=== PATIENT | female | born 1970 | race Caucasian/White ===

== ENCOUNTER 2021-04-02 15:53 | Emergency (ER) | payer OTHER, SELFPAY ==
[2021-04-02 15:54] VITALS: BP 117/73; PULSE 59; RESP 16; TEMP 36.3; O2SAT 100; BMI 23.0
[2021-04-02 16:28] VITALS: O2SAT 98
--- NOTE | 2021-04-02 16:28 | EKG12_ITS ---
Test Reason : CP Blood Pressure : / mmHG Vent. Rate : 053 BPM Atrial Rate : 053 BPM P-R Int : 150 ms QRS Dur : 086 ms QT Int : 436 ms P-R-T Axes : 079 072 053 degrees QTc Int : 409 ms Sinus bradycardia Otherwise normal ECG Confirmed by CARLI CARLSON, ROBERT ([id number]), book editor JAMAL SKY ([id number]) on 04/06/2021 8:36:14 AM Referred By: MOHAMUD Confirmed By:ROBERT BOYCE MD
--- NOTE | 2021-04-02 16:40 | EDS_ITS ---
HPI History of Present Illness Chief Complaint: Chest Pain Narrative Narrative: 50-year-old female presenting with chest pain which resolved. She stated last about 5 minutes. She felt it was like a squeezing in the center of her chest. She felt nauseous when this happened. She denies any cardiac history. She states the other medication take his Synthroid for hypothyroidism. She has no history of DVT/PE and no risk factors. She was previously on control a year ago. Patient states he is not in any pain currently. She states she had an episode which was milder last week. She is felt fine in the interim. [facility] Medical History Hypothyroid Home Medications levothyroxine [Synthroid] 88 mcg PO DAILY 04/02/21 [History Last Taken Unknown] Allergy/AdvReac Type Severity Reaction Status Date / Time No Known Allergies Allergy Verified 04/02/21 15:56 Social History Smoking Status: Never smoker ROS ROS ED Constitutional Constitutional ED: Denies chills, fever(s) or subjective Eyes Eyes: Denies none, blurry vision or change in vision ENT ENT ED: Denies ear pain or rhinorrhea Cardiovascular Cardiovascular: Reports chest pain; Denies palpitations or racing heartbeat Respiratory/Chest Respiratory/Chest: Denies cough or dyspnea Gastrointestinal Gastrointestinal: Reports nausea; Denies abdominal pain Genitourinary Genitourinary ED: Denies dysuria or hematuria Musculoskeletal Musculoskeletal: Denies arthralgias or myalgias Integumentary Denies abscess or rash Neurologic Neurologic: Denies headache(s), paresthesias or weakness Psychiatric Psychiatric: Denies anxiety or depression EXAM Physical Exam Const Vital Signs: 04/02/21 15:54 04/02/21 16:28 04/02/21 16:33 Temperature 97.4 F L Temperature Source Temporal Pulse Rate 59 L Respiratory Rate 16 Respiratory Effort Normal Non-Labored Blood Pressure 117/73 Blood Pressure Mean 87 Pulse Ox 100 98 Oxygen Delivery Method Room Air Room Air 04/02/21 17:06 04/02/21 18:00 04/02/21 19:49 Temperature Temperature Source Pulse Rate 59 L 56 L 61 Respiratory Rate 16 14 16 Respiratory Effort Blood Pressure 119/76 111/68 119/74 Blood Pressure Mean 90 82 Pulse Ox 100 100 98 Oxygen Delivery Method Room Air Room Air Positive well nourished and well developed General Appearance ED: well developed and NAD HEENT Reports moist mucous membranes normocephalic and atraumatic Eyes PERRL and EOMs intact bilaterally Chest Wall inspection of chest normal and palpation of chest normal Resp normal respiratory effort and clear to auscultation bilaterally Effort and Inspection: respiratory distress Cardio regular rate and regular rhythm Neuro oriented x3 Sensorium / Orientation: awake and alert Psych mental status grossly normal Skin no rashes or lesions noted and no wounds Heart Score History: Slightly/Non-Suspicious ECG: Normal Age: >45 - <65 years Risk Factors: No Risk Factors Score: 1 MDM MDM MDM Narrative Medical decision making narrative: 50-year-old female presenting with chest pain. She states she had an episode last week. Is currently resolved. She had EKG performed on arrival which is sinus rhythm at 52 bpm without signs of ST elevation or depression as interpreted by myself. Her vital signs are stable and she is afebrile. Currently her heart score is 1 for age. I cannot use the PERC rule due to age as well. Patient will have D-dimer and cardiac work-up. Patient's initial troponin is negative and so is her delta troponin. D-dimer is also negative. Lab work is otherwise unremarkable. Chest x-ray on my interpretation shows no acute cardiopulmonary process. The radiologist does agree. I believe patient safe to be discharged home at this time. She is given return precautions. Lab Data Labs: Laboratory Results - last 24 hr 04/02/21 04/02/21 04/02/21 16:32 16:32 18:21 WBC 5.8 RBC 4.23 Hgb 12.5 Hct 38.4 MCV 90.8 MCH 29.6 MCHC 32.6 RDW Std Deviation 42.5 RDW Coeff of Ruddy 12.9 Plt Count 178 MPV 12.1 H Immature Gran % (Auto) 0.200 Neut % (Auto) 55.5 Lymph % (Auto) 34.0 [place] % (Auto) 6.5 Eos % (Auto) 2.4 Baso % (Auto) 1.4 H Absolute Neuts (auto) 3.2 Absolute Lymphs (auto) 1.98 Nucleated RBC % 0 D-Dimer Quant (PE/DVT) Sodium 140 Potassium 3.8 Chloride 109 H Carbon Dioxide 25.0 Anion Gap 6 BUN 10 Creatinine 0.59 Estim Creat Clear Calc 97.41 Est GFR (MDRD) Af Amer 138 Est GFR (MDRD) Non-Af 114 BUN/Creatinine Ratio 16.9 Glucose 89 Calcium 9.0 Troponin I High Sens 3.9 4.9 04/02/21 18:21 WBC RBC Hgb Hct MCV MCH MCHC RDW Std Deviation RDW Coeff of Ruddy Plt Count MPV Immature Gran % (Auto) Neut % (Auto) Lymph % (Auto) [place] % (Auto) Eos % (Auto) Baso % (Auto) Absolute Neuts (auto) Absolute Lymphs (auto) Nucleated RBC % D-Dimer Quant (PE/DVT) 0.37 Sodium Potassium Chloride Carbon Dioxide Anion Gap BUN Creatinine Estim Creat Clear Calc Est GFR (MDRD) Af Amer Est GFR (MDRD) Non-Af BUN/Creatinine Ratio Glucose Calcium Troponin I High Sens Radiography Diagnostic Testing: Radiology Impression Chest X-Ray 04/02/21 16:50 IMPRESSION: Normal x-ray examination of the chest. Electronically Signed: Patrick Oscar DO at 17:01 EDT Tel [phone], Service support , Discharge Plan Triage Chief Complaint: Chest Pain ED Provider: Sung Do Dx/Rx/DC Orders Instructions: ED Chest Pain, Noncardiac Prescriptions: No Action levothyroxine [Synthroid] 88 mcg Tablet 88 mcg PO DAILY RF: 0 Primary Care Provider: Adore Dalton Referrals: Adore Dalton MD [Primary Care Provider] - Disposition Disposition: Home, Self Care Discharge Date/Time: 04/02/21 19:49
--- NOTE | 2021-04-02 16:50 | RAD_ITS ---
STUDY: X-RAY CHEST REASON FOR EXAM: Female, 50 years old. Chest pain TECHNIQUE: Frontal view COMPARISON: None. FINDINGS: The lungs are clear and expanded. There is no demonstrated pleural abnormality. Normal size heart. Normal mediastinum and georgi. Normal visualized pulmonary arteries. Normal visualized aortic arch and descending thoracic aorta. Normal visualized thoracic spine. Normal visualized ribs, clavicles, and shoulders. There is no demonstrated abnormality of the visualized soft tissue structures of the upper abdomen. RAD/Chest 1 View (Portable) IMPRESSION: Normal x-ray examination of the chest. Electronically Signed: Patrick Oscar DO at 17:01 EDT Tel [phone], Service support ,
[2021-04-02 16:59] LABS: Absolute Lymphocyte Count 1.98 X10^3/uL (0.83-4.51); Absolute Neutrophil Count 3.2 X10^3/uL (2.0-7.7); Basophil# 0.08 X10^3/uL; Basophil% 1.4 % (0-1); Eosinophil# 0.14 X10^3/uL; Eosinophils% 2.4 % (0-5); Hematocrit 38.4 % (37-47); Hemoglobin 12.5 g/dL (12.0-15.0); Lymphocyte # 1.98 X10^3/ul (0.83-4.51); Mean Corp Hgb Conc 32.6 g/dL (32-36); Mean Corpuscular Hgb 29.6 pg (27.0-32.0); Mean Corpuscular Volume 90.8 fL (81-99); Mean Platelet Vol. 12.1 fl (6.2-12.0); Monocyte# 0.38 X10^3/uL; Monocyte% 6.5 % (0-10); NRBC Flagged by Analyzer 0 % (0-5); Neutrophil # 3.24 X10^3/uL (2.7-7.7); Neutrophil % 55.5 % (47-70); Platelet Count 178 K/mm3 (150-450); RBC Distribution Width CV 12.9 % (11.6-14.6); RBC Distribution Width SD 42.5 fl (35.1-43.9); Red Blood Count 4.23 M/mm3 (4.2-5.4); White Blood Count 5.8 K/mm3 (4.4-11.0)
[2021-04-02 17:06] VITALS: BP 119/76; PULSE 59; RESP 16; O2SAT 100
[2021-04-02 17:13] LABS: Anion Gap 6 (5-15); BUN 10 mg/dL (7-18); BUN/Creat Ratio 16.9 RATIO (10-20); Chloride 109 mmol/L (98-107); Creatinine, Serum 0.59 mg/dL (0.55-1.02); EST Glomerular Filtration Rate 114 mL/min (>60); Est Glom Filt Rate - Afr Amer 138 mL/min (>60); Estimated Creatinine Clearance 97.41 ml/min; Glucose 89 mg/dL (74-106); Potassium 3.8 mmol/L (3.5-5.1); Sodium Level 140 mmol/L (136-145); Troponin-I HS 3.9 pg/mL (3.0-53.7)
[2021-04-02 18:00] VITALS: BP 111/68; PULSE 56; RESP 14; O2SAT 100
[2021-04-02 18:47] LABS: D-Dimer Quantitative (DVT/PE) 0.37 FEU/ug/m (0.27-0.49)
[2021-04-02 18:53] LABS: Troponin-I HS 4.9 pg/mL (3.0-53.7)
[2021-04-02 19:49] VITALS: BP 119/74; PULSE 61; RESP 16; O2SAT 98
== END 2021-04-02 19:49 | disposition home or self-care (01) ==
PROVIDERS: Emergency Provider Student in an Organized Health Care Education/Training Program; PCP Internal Medicine
DX: R07.89 Other chest pain (principal); R11.0 Nausea; E03.9 Hypothyroidism, unspecified; Z79.899 Other long term (current) drug therapy
CPT/HCPCS: 71045; 80048; 84484; 85025; 85379; 93005; 99283; A4216

== ENCOUNTER 2024-04-25 09:43 | Day surgery (SDC) | payer OTHER, SELFPAY ==
--- NOTE | 2024-04-16 13:15 | PCM.HP.BLA ---
History and Physical Date of Admission: 04/25/24 HPI: The patient is a 53 year old female presenting for pre-operative visit. She is scheduled for hysteroscopy with endomtrial ablation, for menorhagia on 04/25/24. Procedure discussed along with risks, benefits and complications. Other alternatives discussed for management. Consent form signed? Yes. PAST MEDICAL HISTORY PAST MEDICAL HISTORY Diagnosis Date ? 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 COLONOSCOPY SCREENING 08/18/2023 repeat 10 years ? PAST SURGICAL HISTORY OF 10/09/1996 left infra-axillary fibroma (skin), benign ? SKIN BIOPSY HX ? THYROIDECTOMY TOTAL/COMPLETE 05/09/1993 right lobe and isthmus CURRENT MEDICATIONS Current Outpatient Medications Medication Sig Dispense Refill ? Cromolyn Sodium (CROLOM) 4 % ophthalmic solution Use 1 Drop in both eyes four times daily. 10 mL 0 ? fluticasone (FLONASE) 50 mcg/actuation nasal spray Use 2 Sprays in each nostril once daily. Rinse mouth after use. 11.1 mL 0 ? levothyroxine (SYNTHROID) 88 mcg tablet Take 1 tablet by mouth once daily. Take on empty stomach. 90 tablet 3 No current facility-administered medications for this visit. ALLERGIES: Patient has no known allergies. PERSONAL HISTORY: SOCIAL HISTORY Social History Tobacco Use ? Smoking status: Never ? Smokeless tobacco: Never Vaping Use ? Vaping Use: Never used Substance Use Topics ? Alcohol use: Yes Comment: Occasionally ? Drug use: No FAMILY HISTORY: FAMILY HISTORY FAMILY HISTORY Problem Relation Age of Onset ? Blood Disease Mother blood clots x 2 (leg, neck) -- starting 2005 ? Colon Cancer Mother 79 ? Coronary Artery Disease Father no MD, no surgery, well controlled ? Asthma Sister ? other (Eczema) Sister ? Cancer Maternal Grandmother uterine ? Blood Disease Maternal Grandfather blood clots, unsure details ? Asthma Paternal Grandmother ? Asthma Son ? other (Eczema) Son ? Cancer Other Paternal cousin with Leukemia REVIEW OF SYMPTOMS: GENERAL: denies fevers or chills ENDOCRINOLOGY: has not been on steroids Cardiology : denies palpitations or chest pain Respiratory: denies SOB or cough Hematology: denies history of prolonged bleeding or easy bruising or VTE Allergy: Denies history of personal or family history of allergy to anesthesia PHYSICAL EXAMINATION: VITALS: Blood pressure 112/64, weight 59.9 kg (132 lb), last menstrual period 03/12/2024. GENERAL: The patient is well nourished, well hydrated in no acute distress. , The patient is oriented to time, place, and person. NECK: Supple. No lynphadenopathy, normal thyroid, no thyromegaly. LUNGS: Clear to auscultation bilaterally. no wheezes, rhonchi or rales HEART: Regular rate and rhythm, Normal heart sounds, and No murmurs or gallops IMPRESSION: menorrhagia PLAN: The risks/benefits/alternatives and personal involved for the planned hysteroscopy with endometrial ablation were reviewed with the patient. Her questions were answered to her satisfaction and she desires to proceed. Consent was signed. I reviewed with her postop instructions and expectations. I have reviewed and updated past medical and surgical history, medications and allergies Assessment & Plan Assessment/Plan (1) Menorrhagia:
[2024-04-25] VITALS (8 sets, daily range): BP systolic 99–119; BP diastolic 69–76; PULSE 52–66; RESP 16; TEMP 36.2–36.8; O2SAT 94–100; BMI 22.3
[2024-04-25 10:11] LABS: Internal QC Validated? YES +Cl - CLEAR BKGD; Pregnancy, Urine Negative Negative
[2024-04-25] MEDS: Acetaminophen 500 MG Tablet 1000 MG PO (10:15)
[2024-04-25] MEDS: Lactated Ringers 1,000 ML 15 ML IV (10:15)
[2024-04-25] MEDS: Ketorolac 30 MG/ML Syringe IV (10:15)
--- NOTE | 2024-04-25 10:16 | DCINST_ITS ---
Discharge Instructions Diet Discharge Diet: No restrictions Activity May resume sexual activity in: 1 week Dressing / Incision Call your doctor if you observe: Fever of 101 or Higher, Inability to urinate, Using more than 1 pad per hour and Uncontrolled pain Follow Up Care Please Follow Up With: Suze Rosas MD When: 1-2 weeks post OP if you need an appointment please call [phone] Test Results: Test results from this visit will be discussed in further detail at your follow- up appointment, if applicable. Discharge Plan Admission Attending Provider: Suze Rosas Primary Care Provider: Adore Dalton Instructions Print Language: Tanzanian Discharge Orders/Prescriptions Prescriptions: No Action levothyroxine [Synthroid] 88 mcg Tablet 88 mcg PO DAILY multivit with min-folic acid [Adult Multivitamin Gummies] 200 mcg tablet,chewable 1 tab PO DAILY [place]-3 350 mg-235 mg- 90 mg-597 mg capsule,delayed release(DR/EC) 1 cap PO DAILY Referrals / Follow Up: Adore Dalton MD [Primary Care Provider] - Disposition Disposition (needs filled in before D/C Order can be placed): Home, Self Care
--- NOTE | 2024-04-25 10:32 | PCM.PRE.AN2 ---
ASA Classification* ASA Classification ASA Classification: 2 Assessment & Plan Anesthesia* Anesthesia Assessment Anesthesia Assessment: Discussed sedation and/or anesthesia options, risks, benefits, and alternatives with patient/parents/legal guardian/POA. Questions invited. The patient/parents/legal guardian/POA seems to understand and agrees to proceed with anesthesia plan. Reviewed the physical assessment, medical history, allergy history and patient home medications list prior to surgery/procedure/anesthetic and documented any changes. Performed airway and anesthesia risk assessments. Anesthesia Type Anesthesia Type: MAC (see pre anesthesia written record for full assessment) Anesthesia Focused Assessment* Temperature: 98.1 F Pulse Rate: 58 Blood Pressure: 119/76 Respiratory Rate: 16 Pulse Ox: 100 Airway Assessment Mouth opens: >3 cm Mallampati Score: II Focused Labs Anesthesia Preop lab: CBC WBC 5.8 K/mm3 (4.4-11.0) 04/02/21 16:32 RBC 4.23 M/mm3 (4.2-5.4) 04/02/21 16:32 Hgb 12.5 g/dL (12.0-15.0) 04/02/21 16:32 Hct 38.4 % (37-47) 04/02/21 16:32 Plt Count 178 K/mm3 (150-450) 04/02/21 16:32 CHEMISTRY Potassium 3.8 mmol/L (3.5-5.1) 04/02/21 16:32 Sodium 140 mmol/L (136-145) 04/02/21 16:32 BUN 10 mg/dL (7-18) 04/02/21 16:32 Creatinine 0.59 mg/dL (0.55-1.02) 04/02/21 16:32 Glucose 89 mg/dL (74-106) 04/02/21 16:32 COAG Urine Test Negative Negative 04/25/24 10:05 Pre-Assessment Diagnosis/Proposed Procedure Planned Operative Procedure(s): HYSTEROSCOPY FRANK Anesthesia History Anesthesia History - vulcanizer operator: Anesthesia History - vulcanizer operator Hx Hospitalization No 04/18/24 14:20 Any Problems With Anesthesia No 04/18/24 14:20 Cholinesterase deficiency No 04/18/24 14:20 You/Your Family Experience No 04/18/24 14:20 fever (hyperthermia) with Relationship Recent Exposure to Contagious No 04/25/24 10:11 Disease Does patient have nerve No 04/18/24 14:20 stimulator Patient instructed to have device shut off --Does patient have Pacemaker No 04/25/24 10:11 or ICD? When Was Last Pacemaker Check QUESTION #4 FULL TEXT: You/Your Family Experience fever (hyperthermia) with Anesthesia Last Oral Intake Last Oral intake: Last Oral Intake NPO since 00:00 04/25/24 10:11 Meds taken in AM with sips of Yes 04/25/24 10:11 water? Meds patient instructed to take am of surgery PONV PONV - vulcanizer operator: PONV - vulcanizer operator Female Yes 04/18/24 14:20 HX of Motion Sickness Yes 04/18/24 14:20 HX of N/V After Surgery No 04/18/24 14:20 Non-Smoker Yes 04/18/24 14:20 Duration of Surgery greater No 04/18/24 14:20 than 60 minutes Number of Risk Factors 3 04/18/24 14:20 PONV Score Moderate Risk 04/18/24 14:20 Height & Weight Height & Weight: Anesthesia: Height & Weight Height 5 ft 5 in 04/25/24 10:11 Weight: 60.872 kg 04/25/24 10:11 Body Mass Index (BMI) 22.3 04/25/24 10:11 Respiratory Assessment Respiratory Assessment - vulcanizer operator: Respiratory Tract Infection Hx - vulcanizer operator Hx Respiratory Tract Infection No 04/18/24 14:20 STOP Sleep Apnea STOP Sleep Apnea - vulcanizer operator: STOP Sleep Apnea - vulcanizer operator Hx Hypertension No 04/18/24 14:20 Hx Sleep Apnea No 04/18/24 14:20 CPAP BIPAP Do you snore loudly (louder Yes 04/18/24 14:20 than talking or can be heard Do you often feel tired/ No 04/18/24 14:20 fatigued/ sleepy during daytime? Has anyone observed you stop No 04/18/24 14:20 breathing during sleep? STOP Results Negative 04/18/24 14:20 QUESTION #5 FULL TEXT : Do you snore loudly (louder than talking or can be heard through closed doors)? Tobacco Use History Tobacco Use History - vulcanizer operator: Tobacco Use History - vulcanizer operator Tobacco Use Smoking Status Never smoker 04/18/24 14:20 Hx Tobacco Use No 04/18/24 14:20 Years Smoking Packs Smoked per Day Smoking Cessation Date was within the last 15 years Hx Smoking Cessation Date Hx Smoking Cessation Counseling Hematologic Medial History Hematologic Hx - vulcanizer operator: Hematologic Medical Hx - flight dynamicist Hx of Blood Transfusion No 04/18/24 14:20 Hx of Transfusion in last 3 No 04/18/24 14:20 Months Date of Last Transfusion (if within last 3 months) Ever experience any problems No 04/18/24 14:20 with transfusion(s)? Specify any problems Hx of Preganancy in last 3 No 04/18/24 14:20 Months Nurse Filling Out Transfusion DSCHRIBER 04/18/24 14:20 & Questions: Date: 04/18/24 04/18/24 14:20 Time: 14:21 04/18/24 14:20 Patient unable to answer at this time (ie. confused, unrespo /Reproduction History /Reproductive History - vulcanizer operator: /Reproductive Hx- vulcanizer operator Hx Now No 04/18/24 14:20 Gestational Age (in weeks): EDC: Hx Hx Para Hx Section SAB No 04/18/24 14:20 Active Medications Active Medications: Current Medications Generic Name Dose Route Start Last Admin Trade Name Freq PRN Reason Stop Dose Admin Acetaminophen 1,000 mg 04/25/24 10:55 04/25/24 10:15 Acetaminophen 500 Mg Tablet PO 04/25/24 10:56 1,000 mg PREOP ONE Administration Lactated Ringer's 1,000 mls @ 15 mls/hr 04/25/24 10:00 04/25/24 10:15 IV 15 mls/hr .Q48H CESAR Administration Ketorolac Tromethamine 30 mg 04/25/24 10:55 04/25/24 10:15 Ketorolac 30 Mg/Ml Syringe IV 04/25/24 10:56 30 mg PREOP ONE Administration PFSH Medical History Wears glasses Cancer Alcohol use Non-smoker Hypothyroid Home Medications ?Medication ?Instructions ?Recorded ?Last Taken ?Type levothyroxine 88 mcg tablet 88 mcg PO DAILY 04/02/21 04/25/24 History (Synthroid) multivitamin with minerals-folic 1 tab PO DAILY 04/18/24 04/24/24 History acid 200 mcg chewable tablet (Adult Multivitamin Gummies) omega 3 350 mg-dha 235 mg-epa 90 1 cap PO DAILY 04/18/24 04/24/24 History mg-fish oil 597 mg capsule,delay rel ([place]-3) Allergy/AdvReac Type Severity Reaction Status Date / Time No Known Allergies Allergy Verified 04/25/24 10:10 Surgical History History of lumpectomy History of lobectomy of thyroid Social History Smoking Status: Never smoker Review of Systems (Anesthesia) ROS Narrative System reviewed and no additional complaints, except as documented.
--- NOTE | 2024-04-25 11:03 | OP.PCM_ITS ---
Report of Operation Date of Procedure: 04/25/24 Pre-Operative Diagnosis: AUB Post-Operative Diagnosis: Same Surgery/Procedure Performed:: Hysteroscopy, Petra endometrial Ablation Description of Surgical Findings:: Bilateral tubal ostia seen. Uterus sounded to 9cm, Endocervical canal 4cm. Retroverted. Surgeon: Suze Rosas sprue cutting press operator: None Type of Anesthesia: MAC Special Medications: none Specimen's removed: none- Drains: none Estimated Blood Loss (mL): 5cc Fluids Replaced: 400cc Description of Procedure: After informed consent was obtained patient taken to the operating room she is placed in supine position she is given anesthesia simply self insert she is prepped draped normal sterile fashion. Bladder was drained prior to the start of the procedure. At this time the weighted speculum was placed the posterior fornix of the vagina then a single-tooth tenaculum was used to grasp the anterior lip of the cervix. At this time the uterus was sounded to approximately 9 cm the endocervical canal sounded to 4 cm. Next cervix was dilated in incremental fashion. Once adequate dilatation was achieved the hysteroscope was inserted using normal saline as distention medium. On hysteroscopy there were no gross abnormalities. Both tubal ostia were visualized. Previous EMB was benign therefore no curettage was performed. At this time the Petra device was opened. The Petra was set at 5 cm. The device was activated. Prior to activation the field test was performed and cavity was intact. The device was then fired and activated for 120 seconds. Once the 120 seconds was completed the device was removed intact and the tenaculum was removed. Good hemostasis was appreciated. Weighted speculum was removed. Vaginal sweep was performed is negative. There were no complications. Anticipated normal postoperative course for this patient. Instrument and lap count were correct ?2. Grafts/Implants Used: none Procedure Start Time: 10:53 Procedure Stop Time: 11:03 Complications none Admit VTE Documentation VTE Present on Admission: Yes VTE Mechan Device Prophylaxis: SCD's VTE Pharm Prophylaxis ordered?: No Reason prophylaxis not ordered:: Procedure Not Indicated
--- NOTE | 2024-04-25 11:12 | PCM.POST.ANE ---
Anesthesia: Postop Eval I Current Vital Signs Temperature: 97.9 F Pulse Rate: 66 Blood Pressure: 102/73 Respiratory Rate: 16 Pulse Ox: 98 Oxygen Delivery Method: Room Air Assessment Airway patent: Yes Spontaneous unlabored respirations: Yes Mental status: Asleep nausea: No Vomiting: No Anesthesia Complication: No Fluid Hydration Crystalloid volume administer (ml): 400 Total IV fluid infused: 400 Progress Note Anesthesia document: Postop Eval 1 completed: Yes
--- NOTE | 2024-04-25 11:27 | POSTOPAN2_ITS ---
Anesthesia Postop Eval I Sum Postop Eval Completion status Anesthesia document: Postop Eval 1 completed: Yes Anesthesia Postop Eval I Summary Anesthesia Postop Eval I Summary: Anesthesia Postop Eval I: Assessment Summary Airway patent Yes 04/25/24 11:13 DRUM SANDER SETTER.[email or web address] Spontaneous unlabored Yes 04/25/24 11:13 DRUM SANDER SETTERLEV respirations Mental status Asleep 04/25/24 11:13 DRUM SANDER SETTER.[email or web address] nausea No 04/25/24 11:13 DRUM SANDER SETTER.RAYMOND Vomiting No 04/25/24 11:13 DRUM SANDER SETTERLEV Anesthesia Postop Eval I: Fluid Summary Crystalloid volume administer 400 04/25/24 11:13 BRIAN.RAYMOND (ml) Colloids volume administered ( ml) Blood Product volume administered (ml) Total IV fluid infused 400 04/25/24 11:13 MARY Anesthesia Postop Eval I: Summary Notes Anesthesia Complication No 04/25/24 11:13 MARY Anesthesia Complication Comment: Post-operative progress note Anesthesia: Postop Eval II Evaluation Mental status: Awake Pain Level: 0 nausea: No Vomiting: No
== END 2024-04-25 12:25 | disposition home or self-care (01) ==
LOC: SDC 09:43 → AC 09:44
PROVIDERS: Anesthesiology; PCP Internal Medicine; Referring Provider Obstetrics & Gynecology; Visit Provider Obstetrics & Gynecology
PROC: 0U5B8ZZ Destruction of Endometrium, Via Natural or Artificial Opening Endoscopic (ICD-10-PCS; CPT 58558; principal; 2024-04-25 10:40)
DX: N92.0 Excessive and frequent menstruation with regular cycle (principal); N93.9 Abnormal uterine and vaginal bleeding, unspecified; E03.9 Hypothyroidism, unspecified; Z79.890 Hormone replacement therapy
CPT/HCPCS: 58563; 00952; 81025; J7120; J2405